=== PATIENT | male | born 1940 | race Caucasian/White ===

== ENCOUNTER 2020-05-16 10:35 | Outpatient (CLI) | payer MEDICARE, OTHER, SELFPAY ==
--- NOTE | 2020-05-16 11:15 | RT.EKG_ITS ---
APPROVED REPORT Exam: Resting ECG Patient Location: O HR:62 bpm ECG Measurements Heart Rate 62 AXIS PA 186 P 24 QRSd 102 QRS -28 QT 408 T 59 QTc 428 Conclusion Sinus rhythm...normal P axis, V-rate 60- 99 Atrial premature beats
== END 2020-05-16 10:36 | disposition home or self-care (01) ==
LOC: RT 10:38
PROVIDERS: Visit Provider Legal Medicine
DX: D46.9 Myelodysplastic syndrome, unspecified (principal)
CPT/HCPCS: 93005; 93010

== ENCOUNTER 2021-06-25 04:10 | Outpatient (CLI) | payer MEDICARE, OTHER, SELFPAY ==
[2021-06-26 00:23] LABS: COVID-19 RT-PCR UVMMC Result Negative (Negative)
== END 2021-06-25 04:11 | disposition home or self-care (01) ==
LOC: LBO 04:10
PROVIDERS: Visit Provider Internal Medicine Hematology & Oncology
DX: Z20.822 Contact with and (suspected) exposure to COVID-19 (principal); D46.9 Myelodysplastic syndrome, unspecified
CPT/HCPCS: U0003; U0005

== ENCOUNTER 2021-06-27 01:39 | Outpatient (RCR) | payer MEDICARE, OTHER, SELFPAY | END 2021-07-20 23:59 | disposition home or self-care (01) | LOC: INF 01:39 | PROVIDERS: Visit Provider Nurse Practitioner Acute Care | DX: Z29.8 Encounter for other specified prophylactic measures (principal); D46.9 Myelodysplastic syndrome, unspecified; D84.821 Immunodeficiency due to drugs; Z79.899 Other long term (current) drug therapy | CPT/HCPCS: 96372; Q0221 ==

== ENCOUNTER 2022-01-17 01:25 | Outpatient (RCR) | payer MEDICARE, OTHER, SELFPAY ==
[2022-01-17] VITALS (10 sets, daily range): BP systolic 121–150; BP diastolic 62–84; PULSE 69–83; RESP 18; TEMP 36.4–36.8; O2SAT 98–100
[2022-01-17 08:41] LABS: Abs Immature Grans 0.03 10^3/uL (0.0-0.06); Absolute Basophil Count 0.06 10^3/uL (0.0-0.2); Absolute Eosinophil Count 0.14 10^3/uL (0.0-0.7); Absolute Lymphocyte Count 0.75 10^3/uL (1.2-3.4); Absolute Monocyte Count 0.68 10^3/uL (0.1-0.8); Absolute Neutrophil Count 2.93 10^3/uL (1.2-6.7); Basophils % 1.3; Eosinophils % 3.1; HCT 25.6 % (40.0-50.0); HGB 8.4 g/dL (13.5-17.5); Immature Grans % 0.7; Lymphocytes % 16.3; MCH 29.3 pg (27.0-33.0); MCHC 32.8 % (32.0-36.0); MCV 89 fL (80-95); MPV 10.6 fL (8.0-11.0); Monocytes % 14.8; Neutrophils % 63.8; RBC 2.87 10^6/uL (4.36-5.78); RDW 13.8 % (11.8-14.1); RDW-SD 44.9 fL; WBC 4.59 10^3/uL (4.4-10.8)
[2022-01-17 09:11] LABS: Diff Comment Diff Reviewed; Hypochromasia 2+; Platelet Count 293 10^3/uL (130-400)
[2022-01-17 09:13] LABS: Poikilocytes 2+
[2022-01-17] MEDS: Normal Saline Flush 10 ML SYR IVP (09:34)
[2022-01-17] MEDS: Heparin 500 UNITS/5 ML SYRINGE IV (09:39)
== END 2022-01-20 23:59 | disposition home or self-care (01) ==
LOC: INF 01:25
PROVIDERS: Nurse Practitioner Adult Health; PCP Legal Medicine; Visit Provider Nurse Practitioner Family
DX: D46.9 Myelodysplastic syndrome, unspecified (principal)
CPT/HCPCS: 36415; 36430; 86850; 86900; 86901; 86920; 96372; Q0221; 85025; P9016

== ENCOUNTER 2022-03-14 00:51 | Outpatient (RCR) | payer MEDICARE, OTHER, SELFPAY ==
[2022-03-03] VITALS (9 sets, daily range): BP systolic 128–151; BP diastolic 69–76; PULSE 61–75; RESP 16–18; TEMP 36.7–37; O2SAT 99–100
[2022-03-03 10:24] LABS: Abs Immature Grans 0.03 10^3/uL (0.0-0.06); Absolute Basophil Count 0.03 10^3/uL (0.0-0.2); Absolute Eosinophil Count 0.19 10^3/uL (0.0-0.7); Absolute Lymphocyte Count 0.74 10^3/uL (1.2-3.4); Absolute Monocyte Count 0.67 10^3/uL (0.1-0.8); Absolute Neutrophil Count 2.68 10^3/uL (1.2-6.7); Basophils % 0.7; Eosinophils % 4.4; HCT 24.2 % (40.0-50.0); HGB 7.9 g/dL (13.5-17.5); Immature Grans % 0.7; Lymphocytes % 17.1; MCH 29.8 pg (27.0-33.0); MCHC 32.6 % (32.0-36.0); MCV 91 fL (80-95); MPV 11.2 fL (8.0-11.0); Monocytes % 15.4; Neutrophils % 61.7; Platelet Count 236 10^3/uL (130-400); RBC 2.65 10^6/uL (4.36-5.78); RDW 14.6 % (11.8-14.1); RDW-SD 49.3 fL; WBC 4.34 10^3/uL (4.4-10.8)
[2022-03-03] MEDS: Heparin 500 UNITS/5 ML SYRINGE IV (14:30)
[2022-03-03] MEDS: Normal Saline Flush 10 ML SYR IVP (14:30)
[2022-03-14] VITALS (10 sets, daily range): BP systolic 116–156; BP diastolic 50–80; PULSE 78–89; RESP 16–18; TEMP 36.6–36.8; O2SAT 97–99
[2022-03-14 07:59] LABS: Abs Immature Grans 0.05 10^3/uL (0.0-0.06); Absolute Basophil Count 0.06 10^3/uL (0.0-0.2); Absolute Lymphocyte Count 0.85 10^3/uL (1.2-3.4); Absolute Monocyte Count 0.85 10^3/uL (0.1-0.8); Absolute Neutrophil Count 4.21 10^3/uL (1.2-6.7); Eosinophils % 3.2; HCT 24.2 % (40.0-50.0); HGB 7.8 g/dL (13.5-17.5); Immature Grans % 0.8; Lymphocytes % 13.7; MCH 29.5 pg (27.0-33.0); MCHC 32.2 % (32.0-36.0); MCV 92 fL (80-95); MPV 10.9 fL (8.0-11.0); Monocytes % 13.7; Neutrophils % 67.6; Platelet Count 280 10^3/uL (130-400); RBC 2.64 10^6/uL (4.36-5.78); RDW 15.2 % (11.8-14.1); RDW-SD 50.8 fL; WBC 6.22 10^3/uL (4.4-10.8)
[2022-03-14] MEDS: Normal Saline Flush 10 ML SYR IVP (09:10)
[2022-03-14] MEDS: Heparin 500 UNITS/5 ML SYRINGE IV (09:10)
== END 2022-03-22 23:59 | disposition home or self-care (01) ==
LOC: INF 00:51
PROVIDERS: PCP Legal Medicine; Visit Provider Nurse Practitioner Adult Health
DX: D46.9 Myelodysplastic syndrome, unspecified (principal)
CPT/HCPCS: 36430; 36591; 86850; 86900; 86901; 86920; 85025; P9016

== ENCOUNTER 2022-03-26 13:44 | Inpatient (IN) | payer MEDICARE, SELFPAY ==
[2022-03-26] VITALS (29 sets, daily range): BP systolic 110–149; BP diastolic 68–129; PULSE 95–160; RESP 13–30; TEMP 36.4–36.8; O2SAT 95–100
--- NOTE | 2022-03-26 13:45 | RT.EKG_ITS ---
APPROVED REPORT Exam: Resting ECG Reason for Exam: Afib/lightheadedness Patient Location: E HR:101 bpm ECG Measurements Heart Rate 101 AXIS VA 194 P 54 QRSd 94 QRS -32 QT 362 T 120 QTc 470 Conclusion Sinus tachycardia...rate> 99 Probable left atrial enlargement...P >50mS, <-0.10mV V1 Left ventricular hypertrophy...multiple LVH criteria Abnormal T, consider ischemia, lateral leads...T <-0.20mV, I aVL V5 V6 inversions new compared to prior 05/16/20
--- NOTE | 2022-03-26 14:15 | DI.CT_ITS ---
Exam(s) CT CHEST PE CTA EXAM: CT CHEST PE CTA CLINICAL HISTORY: leukemia, SOB, BATISTA, tachy. TECHNIQUE: Imaging Protocol: Axial CT angiography was performed with multi-slice acquisition and mu lti-planar reconstructions as well as axial, coronal and sagittal MIP reconstructions. CONTRAST MATERIAL: Intravenous: Omnipaque 350 Contrast volume:100 ml COMPARISON: No exams were available for comparison FINDINGS: Pulmonary Arteries: No evidence of filling defect to suggest pulmonary emboli. Tracheobronchial tree: Patent where visualized. Mediastinum and K[place]: No dominant adenopathy or fluid collection. Pulmonary parenchyma: No consolidation or dominant measurable mass. Mild atelectasis or scarring in t he medial lingula. Mild basilar atelectasis. Pleura: No pneumothorax. Small to moderate size bilateral pleural effusions, right greater than left . Heart: Dilated left atrium and left ventricle. Coronary artery calcifications. Aorta: Thoracic aorta non-dilated. No aneurysm. No dissection. Mild atherosclerotic changes. Upper abdomen: Cholelithiasis. Pancreas somewhat atrophic. Small amount of ascites seen at border of liver. Bones: Prominent degenerative changes. No compression fractures. Tubes, Catheters, and Lines: Port over right pectoral muscle IMPRESSION: No evidence of pulmonary embolism. Small small a moderate-sized bilateral pleural effusions. No raghu dence of pneumonia or pulmonary edema. Findings called to Dr. Juliocesar Burris of the emergency department. RADIATION DOSE DELIVERED: 376.01mGy.cm Total DLP DATA REPOSITORY: All CT scans at this facility are submitted to the National Radiology Data Registry (NRDR) Dose Index Registry (DIR) with the [employer] ([employer]). RADIATION OPTIMIZATION: All CT scans at this facility use at least one of these dose optimization te chniques: automated exposure control; mA and/or kV adjustment per patient size (includes targeted exa ms where dose is matched to clinical indication); or iterative reconstruction.
--- NOTE | 2022-03-26 14:31 | W.ED.GENAD ---
Discharge Plan Disposition Patient Disposition: Admit to [facility] Condition: Serious Discharge Details Chief Complaint: Dizzy/Sync Clinical Impression: Acute CHF (congestive heart failure), Ascites, Hyperbilirubinemia, Transaminitis, Elevated troponin Primary Care Provider: Ros Hussein ED Provider: Juliocesar Burris Home Meds and New Rx's Prescriptions: No Action acyclovir 400 mg tablet 400 mg PO BID zinc 10 mg Tablet 10 mg PO BID Medical Decision Making 1435 --82-year-old male with history of end-stage leukemia, receiving transfusions every 1 to 2 weeks, here with shortness of breath with dyspnea on exertion over the past 2 weeks. Patient is saturating well and in no respiratory distress. He does have fine rales bilaterally throughout on lung auscultation. He is tachycardic. I reviewed playground monitor and patient is in a sinus tachycardia. EKG was reviewed and interpreted by me: Sinus tachycardia 101 bpm, left axis, T wave inversions are noted 1, aVL, V6. I compared this to prior EKG from 05/17/2020 and T wave inversions were not present at that time. I will check troponin. Consider CHF and will check BNP. I am highly concerned for acute pulmonary embolism and will obtain CT of the chest. -- CT of the chest was interpreted by radiology: bilateral small to moderate pleural effusions, LA and LV dilated, no PE, small ascites. Labs reviewed and BNP is significantly elevated. Troponin also slightly elevated at 90. Mild transaminitis with total bilirubin of 1.5. Patient is anemic 10.4, this is improved from most recent prior. Will give Lasix 20 mg IV. I called and spoke with the hospitalist, discussed ED presentation and course, they will admit the patient for continued diuresis and monitoring. Lab Data Lab results reviewed: Yes I reviewed the patient's lab results. Labs: Laboratory Tests Range/Units 03/26/22 03/26/22 03/26/22 14:10 14:10 14:36 WBC (4.4-10.8) 10^3/uL 9.29 RBC (4.36-5.78) 10^6/uL 3.48 L Hgb (13.5-17.5) g/dL 10.4 L Hct (40.0-50.0) % 30.7 L MCV (80-95) fL 88 MCH (27.0-33.0) pg 29.9 MCHC (32.0-36.0) % 33.9 RDW (11.8-14.1) % 15.1 H Plt Count (130-400) 10^3/uL MPV (8.0-11.0) fL Immature Gran % 1.2 Neutrophils % 74.0 Lymphocytes % 8.7 Monocytes % 14.2 Eosinophils % 1.0 Basophils % 0.9 Nucleated RBC % (0.0-0.3) % 0.0 Absolute Neutrophils (1.2-6.7) 10^3/uL 6.88 H Absolute Lymphocytes (1.2-3.4) 10^3/uL 0.81 L Absolute Monocytes (0.1-0.8) 10^3/uL 1.32 H Absolute Eosinophils (0.0-0.7) 10^3/uL 0.09 Absolute Basophils (0.0-0.2) 10^3/uL 0.08 Sodium (136-145) mmol/L 142 Potassium (3.5-5.1) mmol/L 4.6 Chloride (98-107) mmol/L 108 H Carbon Dioxide (21.0-32.0) mmol/L 25.7 Anion Gap (3-11) mmol/L 8.3 BUN (7-18) mg/dL 28 H Creatinine (0.70-1.30) mg/dL 1.0 Est GFR (CKD-EPI 2020) (mL/min/1.73m2) 75.61 Glucose (74-106) mg/dL 156 H Calcium (8.5-10.1) mg/dL 8.8 Magnesium (1.8-2.4) mg/dL 1.8 Total Bilirubin (0.2-1.0) mg/dL 1.5 H AST (15-37) U/L 52 H ALT (16-63) U/L 161 H Alkaline Phosphatase (46-116) U/L 133 H Troponin I (<or=60) ng/L 99 H* NT-Pro-B Natriuret Pep (<300) pg/mL 83236 H Total Protein (6.4-8.2) g/dL 7.0 Albumin (3.4-5.0) g/dL 4.0 TSH (0.36-3.74) uIU/mL 4.20 H Free T4 (0.76-1.46) ng/dL 1.03 COVID-19 Source Nasal/Nares SARS-CoV-2 (PCR) (Negative) Negative HPI General Mode of arrival: ambulatory. Date/Time Provider Initiated Documentation: 03/26/22 14:13. Limitations to Documentation: no limitations. Information obtained by: patient. HPI Narrative: 82-year-old male with history of end-stage anemia, sent from [facility] by Dr. Ling, with concern for potential arrhythmia. Patient has chief complaint of shortness of breath. He notes he has been feeling short of breath for the past 2-week. Symptoms are moderate to severe and persistent. He notes with any exertion he feels worse. He has no associated chest pain or palpitations. No leg swelling or calf pain. Patient is not actively receiving chemotherapy but is receiving blood transfusions of 2 units every [address] Beach and concerned about the potential for atrial fibrillation. Related Data Home Medications Medication Instructions Recorded Confirmed acyclovir 400 mg tablet 400 mg PO BID 10/25/21 03/26/22 zinc 10 mg tablet 10 mg PO BID 03/26/22 03/26/22 Allergies Allergy/AdvReac Type Severity Reaction Status Date / Time No Known Allergies Allergy Verified 03/10/22 12:58 General Stated Complaint: Dizzy/Sync ALISTAIR: 3 Review of Systems All systems reviewed & are unremarkable except as noted in HPI and below Constitutional Constitutional: Denies fever(s) Cardiovascular Cardiovascular: Reports as per HPI, Denies chest pain and Reports dyspnea Respiratory Respiratory: Reports as per HPI and Reports dyspnea PFSH All Active Problems (Updated 03/26/22 @ 16:12 by Juliocesar Burris MD) Acute CHF (congestive heart failure) (Acute) Ascites (Acute) Hyperbilirubinemia (Acute) Transaminitis (Acute) Elevated troponin (Acute) Unintentional weight loss (Acute) Physician orders for life-sustaining treatment (POLST) form indicates patient wish for [id number] status (Acute) Palliative care patient (Acute) Fatigue (Acute) Myelodysplastic syndrome (Acute) Basal cell carcinoma (Acute) Actinic keratosis (Acute) Hypertension (Chronic) Medical History Squamous cell carcinoma in situ of skin Social History Smoking/Tobacco Use Status: Never Smoking risk assessment performed?: Yes Substance use type: does not use Do you feel safe at home: Yes Do you feel safe in your relationship?: Yes Exam Const General: cooperative and no acute distress HENMT Mouth: moist mucous membranes Eyes Conjunctivae: normal conjunctivae Sclera: normal sclerae EOM: EOM intact bilaterally Neck Neck: trachea midline and supple Resp Effort & Inspection: normal respiratory effort Auscultation: rales bilaterally (throughout, fine), no rhonchi and no wheezes Cardio Jugular venous pressure: no JVD Rate: bradycardic Rhythm: regular rhythm Heart Sounds: no gallops, no murmurs and no rubs GI Palpation: soft, not firm, no guarding, no masses, not rigid and nontender Skin General skin exam: no rashes or lesions noted Neuro General: patient alert, patient awake, patient oriented x3 and tone normal Cognition: normal cognition Speech: speech normal Extrem General: no calf tenderness and edema Laterality: bilateral (trace distal LEs) Psych Appearance: grossly normal Mental Status: mental status grossly normal Speech and Movement: speech and movement normal Course Vital Signs Vital signs: Vital Signs Pulse 105 H 03/26/22 13:47 Respiratory Rate 16 03/26/22 13:47 Blood Pressure 128/82 03/26/22 13:47 Pulse Oximetry 98 03/26/22 13:47 Temperature Source Skin 03/26/22 13:47 Pulse 105 H 03/26/22 13:47 Respiratory Rate 18 03/26/22 14:10 Respiratory Effort Non-Labored 03/26/22 14:10 Respiratory Depth Normal 03/26/22 14:10 Respiratory Pattern Normal 03/26/22 14:10 Blood Pressure 128/82 03/26/22 13:47 Blood Pressure Position Supine 03/26/22 13:47 Pulse Oximetry 98 03/26/22 13:47 Oxygen Delivery Method Room Air 03/26/22 13:47 Oxygen Flow Rate 0 03/26/22 13:47 Pain Level 0 03/26/22 13:47
[2022-03-26 14:41] LABS: Source Nasal/Nares
[2022-03-26 14:44] LABS: Abs Immature Grans 0.11 10^3/uL (0.0-0.06); Absolute Basophil Count 0.08 10^3/uL (0.0-0.2); Absolute Eosinophil Count 0.09 10^3/uL (0.0-0.7); Absolute Lymphocyte Count 0.81 10^3/uL (1.2-3.4); Absolute Monocyte Count 1.32 10^3/uL (0.1-0.8); Absolute Neutrophil Count 6.88 10^3/uL (1.2-6.7); Basophils % 0.9; HCT 30.7 % (40.0-50.0); HGB 10.4 g/dL (13.5-17.5); Immature Grans % 1.2; Lymphocytes % 8.7; MCH 29.9 pg (27.0-33.0); MCHC 33.9 % (32.0-36.0); MCV 88 fL (80-95); Monocytes % 14.2; RBC 3.48 10^6/uL (4.36-5.78); RDW 15.1 % (11.8-14.1); RDW-SD 48.2 fL; WBC 9.29 10^3/uL (4.4-10.8)
[2022-03-26 15:07] LABS: ALT 161 U/L (16-63); AST 52 U/L (15-37); Alkaline Phosphatase 133 U/L (46-116); Anion Gap 8.3 mmol/L (3-11); BUN 28 mg/dL (7-18); Bilirubin, Total 1.5 mg/dL (0.2-1.0); CO2 25.7 mmol/L (21.0-32.0); Calcium 8.8 mg/dL (8.5-10.1); Chloride 108 mmol/L (98-107); Estimated GFR 75.61 (mL/min/1.73m2); Glucose 156 mg/dL (74-106); Magnesium 1.8 mg/dL (1.8-2.4); NT-proBNP 12397 pg/mL (<300); Potassium 4.6 mmol/L (3.5-5.1); Sodium 142 mmol/L (136-145)
[2022-03-26 15:09] LABS: Troponin I 99 ng/L (<or=60)
[2022-03-26 15:21] LABS: COVID-19 PCR Negative (Negative)
[2022-03-26 15:29] LABS: FREE T4 1.03 ng/dL (0.76-1.46)
[2022-03-26] MEDS: Furosemide 20 MG/2 ML VIAL IVP (15:34)
[2022-03-26] MEDS: Omnipaque 350 MG/ML 100 ML BTL IJ (15:46)
[2022-03-26] MEDS: Normal Saline Flush 10 ML SYR IVP ×2 (15:48→20:34)
[2022-03-26] MEDS: Normal Saline - Diluent 50 ML VIAL IJ (15:49)
--- NOTE | 2022-03-26 16:13 | W.PM.HP.N ---
Date of service: 03/26/22 Time of Service: 16:13 Assessment and Plan Assessment and plan (1) Acute CHF (congestive heart failure): Status: Acute Assessment and plan: Admitted to hospitalist services for diuresis. Received 20 mg of IV Lasix in the emergency department we will monitor intake and output closely and daily weights. Echocardiogram pending for tomorrow. telemetry to monitor for tachy dysrhymia, ? afib (denies palpitations or fluttering) He has had no chest pain and his symptoms for 2 weeks. His troponin is slightly elevated at 99 will obtain 1 more troponin to see how it is trending. (denies any c/p now or at/around onset) consider cardiology consult (2) Myelodysplastic syndrome: Status: Acute Assessment and plan: End-stage, receives weekly blood transfusions, Is a DNR/DNI discussed with DR Rosen. History of Present Illness History of Present Illness Chief Complaint: shortness of breath Narrative: This is an 82-year-old gentleman followed by oncology who is end-stage myelodysplastic syndrome who receives 1 to 2 units of packed red blood cells weekly who was referred to the emergency department for 2-week history of increasing shortness of breath. In the emergency department he was noted to have bilateral lower extremity trace edema and rales at his bases, he denies issue with edema. He had no oxygen requirement. He did undergo a CT for PE protocol that was negative for pulmonary embolism. He was given 20 mg of IV Lasix in the emergency department and admission request to hospitalist services was made patient will be admitted to the medical surgical unit for further diuresis and evaluation. Review of Systems Constitutional Constitutional: Denies chills, Denies fever(s) and Reports weakness Eyes Eyes: Denies change in vision ENT Ears, Nose, Mouth, and Throat: Denies vertigo and Denies dizziness Cardiovascular Cardiovascular: Denies chest pain, Reports leg edema (Bilateral), Reports dyspnea and Reports dyspnea on exertion Respiratory Respiratory: Reports dyspnea and Reports dyspnea on exertion Gastrointestinal Gastrointestinal: Denies abdominal pain, Denies hematochezia and Denies diarrhea Musculoskeletal Musculoskeletal: Denies back pain Neurologic Neurologic: Denies vertigo, Denies dizziness and Reports weakness Hematologic/Lymphatic Hematologic/Lymphatic: Denies easy bleeding PFSH All Active Problems (Updated 03/26/22 @ 16:12 by Juliocesar Burris MD) Acute CHF (congestive heart failure) (Acute) Ascites (Acute) Hyperbilirubinemia (Acute) Transaminitis (Acute) Elevated troponin (Acute) Unintentional weight loss (Acute) Physician orders for life-sustaining treatment (POLST) form indicates patient wish for [id number] status (Acute) Palliative care patient (Acute) Fatigue (Acute) Myelodysplastic syndrome (Acute) Basal cell carcinoma (Acute) Actinic keratosis (Acute) Hypertension (Chronic) Medical History Squamous cell carcinoma in situ of skin Social History Smoking/Tobacco Use Status: Never Smoking risk assessment performed?: Yes Substance use type: does not use Do you feel safe at home: Yes Do you feel safe in your relationship?: Yes Meds Allergies and Home Medications Allergies Allergy/AdvReac Type Severity Reaction Status Date / Time No Known Allergies Allergy Verified 03/10/22 12:58 Home Medications Medication Instructions Recorded Confirmed Type acyclovir 400 mg tablet 400 mg PO BID 10/25/21 03/26/22 History zinc 10 mg tablet 10 mg PO BID 03/26/22 03/26/22 History Exam Const General: cooperative, comfortable and no acute distress Nutritional Appearance: average body habitus Orientation: alert, awake and oriented x3 HENMT Head: normal to inspection, normocephalic and atraumatic Mouth: oral mucosae normal Resp Effort & Inspection: normal respiratory effort Auscultation: clear to auscultation bilaterally, diminished lung sounds (bases) and no wheezes Cardio Rate: regular rate Rhythm: regular rhythm Heart Sounds: no murmurs GI Inspection: normal to inspection Palpation: soft and nontender Auscultation: normal bowel sounds Skin General skin exam: no rashes or lesions noted Neuro General: patient alert, patient awake, patient oriented x3 and no focal motor deficits Extrem General: normal to inspection and no pedal edema Results Labs Result diagrams: 03/26/22 14:10 03/26/22 14:10 Labs: Laboratory Results - last 24 hr 03/26/22 03/26/22 03/26/22 14:10 14:10 14:36 WBC 9.29 RBC 3.48 L Hgb 10.4 L Hct 30.7 L MCV 88 MCH 29.9 MCHC 33.9 RDW 15.1 H Plt Count MPV Immature Gran % 1.2 Neutrophils % 74.0 Lymphocytes % 8.7 Monocytes % 14.2 Eosinophils % 1.0 Basophils % 0.9 Nucleated RBC % 0.0 Absolute Neutrophils 6.88 H Absolute Lymphocytes 0.81 L Absolute Monocytes 1.32 H Absolute Eosinophils 0.09 Absolute Basophils 0.08 Sodium 142 Potassium 4.6 Chloride 108 H Carbon Dioxide 25.7 Anion Gap 8.3 BUN 28 H Creatinine 1.0 Est GFR (CKD-EPI 2020) 75.61 Glucose 156 H Calcium 8.8 Magnesium 1.8 Total Bilirubin 1.5 H AST 52 H ALT 161 H Alkaline Phosphatase 133 H Troponin I 99 H* NT-Pro-B Natriuret Pep 01947 H Total Protein 7.0 Albumin 4.0 TSH 4.20 H Free T4 1.03 COVID-19 Source Nasal/Nares SARS-CoV-2 (PCR) Negative Last Vital Signs Pulse 105 H 03/26/22 13:47 Resp 18 03/26/22 14:10 BP 128/82 03/26/22 13:47 Pulse Ox 98 03/26/22 13:47 Time Spent Time spent with Patient: <40 minutes Time was spent: preparing to see the patient(eg.review tests), obtaining and/or reviewing separately otained hiistory, ordering medications,tests, procedures and referring, communicating with other health acute care nurse practitioner
[2022-03-26 19:16] LABS: Troponin I 117 ng/L (<or=60)
[2022-03-26] MEDS: Acyclovir 400 MG TAB PO (20:34)
[2022-03-26 22:33] LABS: Platelet Count 252 10^3/uL (130-400)
[2022-03-26 22:58] LABS: Troponin I 113 ng/L (<or=60)
[2022-03-27] VITALS (7 sets, daily range): BP systolic 100–126; BP diastolic 59–76; PULSE 91–98; RESP 16; TEMP 36.3–36.5; O2SAT 98
[2022-03-27] MEDS: Metoprolol 12.5 MG TAB PO ×2 (00:20→08:34)
[2022-03-27] MEDS: Normal Saline Flush 10 ML SYR IVP ×2 (00:20→08:34)
[2022-03-27 05:52] LABS: HCT 28.9 % (40.0-50.0); HGB 9.6 g/dL (13.5-17.5); MCHC 33.2 % (32.0-36.0); MCV 87 fL (80-95); MPV 12.8 fL (8.0-11.0); Platelet Count 281 10^3/uL (130-400); RBC 3.31 10^6/uL (4.36-5.78); RDW-SD 47.7 fL; WBC 8.39 10^3/uL (4.4-10.8)
[2022-03-27 06:02] LABS: Anion Gap 11.2 mmol/L (3-11); BUN 33 mg/dL (7-18); CO2 24.8 mmol/L (21.0-32.0); CREATININE 1.2 mg/dL (0.70-1.30); Calcium 8.6 mg/dL (8.5-10.1); Chloride 105 mmol/L (98-107); Estimated GFR 60.75 (mL/min/1.73m2); Glucose 141 mg/dL (74-106); Potassium 4.5 mmol/L (3.5-5.1); Sodium 141 mmol/L (136-145)
--- NOTE | 2022-03-27 07:15 | RT.EKG_ITS ---
APPROVED REPORT Exam: Resting ECG Reason for Exam: chf Patient Location: I HR:93 bpm ECG Measurements Heart Rate 93 AXIS NH 179 P 64 QRSd 89 QRS -32 QT 364 T 119 QTc 453 Conclusion Sinus rhythm...normal P axis, V-rate 50- 99 Supraventricular bigeminy...bigeminy string>4 w/ SV complexes Probable left atrial enlargement...P >50mS, <-0.10mV V1 Left ventricular hypertrophy...multiple LVH criteria Abnormal T, consider ischemia, lateral leads...T <-0.20mV, I aVL V5 V6
[2022-03-27] MEDS: Acyclovir 400 MG TAB PO (08:34)
--- NOTE | 2022-03-27 11:05 | DSE_ITS ---
Date of service: 03/27/22 Time of Service: 11:05 DS: Diagnosis Discharge Diagnosis (1) Acute CHF (congestive heart failure): Status: Acute (2) Myelodysplastic syndrome: Status: Acute Discharge Plan Disposition Patient Disposition: Home Condition: Good Discharge Details Reason For Visit: Congestive Heart Failure Admit Date/Time: 03/26/22 16:09 Admit Provider: Moncho Rosen Attending Provider: Moncho Rosen Primary Care Provider: Ros Hussein Hospital Course Hospital Course: This is an 82-year-old gentleman followed by oncology who is end-stage myelodysplastic syndrome who receives 1 to 2 units of packed red blood cells weekly who was referred to the emergency department for 2-week history of increasing shortness of breath.? In the emergency department he was noted to have bilateral lower extremity trace edema and rales at his bases, he denied previous history of edema.? He had and continues to have no oxygen requirement.? He did undergo a CT for PE protocol that was negative for pulmonary embolism.? He was given 20 mg of IV Lasix in the emergency department and admission request to hospitalist services was made. Patient was admitted to the medical surgical unit for further diuresis and evaluation. He did well overnight. Cardiology was consulted. He stated he felt back to baseline and his vital signs were stable, no chest pain and no shortness of breath. He was discharged to home with furosemide 20mg every other day until he sees his PCP. He was started on Metoprolol while hospitalized for AFib; he did not have any episodes of AFib, he had normal sinus rhythm with occasional PVC's that were pretty rare. The Metoprolol was stopped. He should have his blood drawn next week to check his electrolytes, that order has been sent. His electrolytes here are normal, therefore he is not going home with any supplementation of potassium or magnesium. He was discharged to home, ambulatory, improved, stable with his . Discussed with Dr Rosen. ? Home Meds and New Rx's Prescriptions: New furosemide [Lasix] 20 mg tablet 20 mg PO Q OTHER DAY Qty: 14 0RF No Action acyclovir 400 mg tablet 400 mg PO BID zinc 10 mg Tablet 10 mg PO BID Discharge Instructions Instructions: Heart Failure (DC), DASH Eating Plan (DC) Additional Instructions: Take furosemide 20 mg every other day until you see your PCP. Have your blood drawn next Thursday to check your electrolytes. DASH diet. Stand Alone Forms: Nursing Discharge Form Referrals: Ros Hussein [Primary Care Provider] - 04/03/22 10:45 am (1-2 weeks) Activity:: Activity as Tolerated Equipment/Supplies:: No Equipment Needed Diet:: Low Sodium Discharge Orders Discharge Orders: Discharge Order (Routine); Ordered 03/27/22 Ordered By: Nataly Alberto Other Ambulatory Orders: Basic Metabolic Panel (Routine) Timeframe: [id number] Facility: [facility] - Location: Laboratory Ordered By: Nataly Alberto Discharge Data Discharge Date/Time-TO BE ENTERED AT DEPARTURE: 03/27/22 13:25 DS: Summary Time Spent with Patient providing and/or coordinating discharge services: Greater than 30 minutes Status at Discharge Functional status at discharge: independent ambulation Overall status at discharge: patient is back to baseline Mental Status: mental status grossly normal Speech and Movement: speech and movement normal Mood: congruent mood Affect: normal affect Exam Const General: cooperative, comfortable and no acute distress Nutritional Appearance: average body habitus Orientation: alert, awake and oriented x3 HENMT Head: normal to inspection, normocephalic and atraumatic Mouth: oral mucosae normal Resp Effort & Inspection: normal respiratory effort Auscultation: clear to auscultation bilaterally and no wheezes Cardio Rate: regular rate Rhythm: regular rhythm Heart Sounds: no murmurs GI Inspection: normal to inspection Palpation: soft and nontender Auscultation: normal bowel sounds Skin General skin exam: no rashes or lesions noted Neuro General: patient alert, patient awake, patient oriented x3 and no focal motor deficits Extrem General: normal to inspection and no pedal edema Psych Mental Status: mental status grossly normal Speech and Movement: speech and movement normal Mood: congruent mood Affect: normal affect DS: Data Vitals/I&O Vitals and I&O: Vital Signs Temperature 36.5 C 03/27/22 06:41 Temperature Source Tympanic 03/27/22 06:41 Pulse 98 H 03/27/22 07:15 Pulse Rhythm Regular 03/27/22 09:00 Pulse 103 H 03/26/22 16:10 Respiratory Rate 16 03/27/22 06:41 Respiratory Effort 03/27/22 09:00 Respiratory Depth Normal 03/27/22 09:00 Respiratory Pattern Normal 03/27/22 09:00 Blood Pressure 126/76 03/27/22 06:41 Blood Pressure Mean 87 03/26/22 16:01 Blood Pressure Position Supine 03/26/22 13:47 Pulse Oximetry 98 03/27/22 06:41 Oxygen Delivery Method Room Air 03/27/22 06:41 Oxygen Flow Rate 0 03/27/22 06:41 Pain Level 0 03/26/22 22:47 Intake & Output 03/26/22 03/26/22 03/27/22 11:59 23:59 11:59 Intake Total 20 / 20 240 / 240 Output Total 250 / 250 300 / 300 Balance -230 / -230 -60 / -60 Weight 86.636 kg 83.4 kg Intake: IV 20 / 20 Oral 240 / 240 Output: Urine 250 / 250 300 / 300 Other: Urine Color Light Sandy Yellow Urine Appearance Clear Clear Urine Odor Normal Normal Comment pt had lasix in ED prior to arrival to [facility] unit Voiding Methods Toilet Bedside Commode Data Completed and Pending Labs on day of discharge: Labs from last 24 hours 03/27/22 03/27/22 03/26/22 05:40 05:40 22:19 WBC 8.39 RBC 3.31 L Hgb 9.6 L Hct 28.9 L MCV 87 MCH 29.0 MCHC 33.2 RDW 15.0 H Plt Count 281 252 MPV 12.8 H Immature Gran % Neutrophils % Lymphocytes % Monocytes % Eosinophils % Basophils % Nucleated RBC % Absolute Neutrophils Absolute Lymphocytes Absolute Monocytes Absolute Eosinophils Absolute Basophils Sodium 141 Potassium 4.5 Chloride 105 Carbon Dioxide 24.8 Anion Gap 11.2 H BUN 33 H Creatinine 1.2 Est GFR (CKD-EPI 2020) 60.75 Glucose 141 H Calcium 8.6 Magnesium Total Bilirubin AST ALT Alkaline Phosphatase Troponin I NT-Pro-B Natriuret Pep Total Protein Albumin TSH Free T4 COVID-19 Source SARS-CoV-2 (PCR) 03/26/22 03/26/22 03/26/22 22:19 18:40 14:36 WBC RBC Hgb Hct MCV MCH MCHC RDW Plt Count MPV Immature Gran % Neutrophils % Lymphocytes % Monocytes % Eosinophils % Basophils % Nucleated RBC % Absolute Neutrophils Absolute Lymphocytes Absolute Monocytes Absolute Eosinophils Absolute Basophils Sodium Potassium Chloride Carbon Dioxide Anion Gap BUN Creatinine Est GFR (CKD-EPI 2020) Glucose Calcium Magnesium Total Bilirubin AST ALT Alkaline Phosphatase Troponin I 113 H* 117 H* NT-Pro-B Natriuret Pep Total Protein Albumin TSH Free T4 COVID-19 Source Nasal/Nares SARS-CoV-2 (PCR) Negative 03/26/22 03/26/22 14:10 14:10 WBC 9.29 RBC 3.48 L Hgb 10.4 L Hct 30.7 L MCV 88 MCH 29.9 MCHC 33.9 RDW 15.1 H Plt Count MPV Immature Gran % 1.2 Neutrophils % 74.0 Lymphocytes % 8.7 Monocytes % 14.2 Eosinophils % 1.0 Basophils % 0.9 Nucleated RBC % 0.0 Absolute Neutrophils 6.88 H Absolute Lymphocytes 0.81 L Absolute Monocytes 1.32 H Absolute Eosinophils 0.09 Absolute Basophils 0.08 Sodium 142 Potassium 4.6 Chloride 108 H Carbon Dioxide 25.7 Anion Gap 8.3 BUN 28 H Creatinine 1.0 Est GFR (CKD-EPI 2020) 75.61 Glucose 156 H Calcium 8.8 Magnesium 1.8 Total Bilirubin 1.5 H AST 52 H ALT 161 H Alkaline Phosphatase 133 H Troponin I 99 H* NT-Pro-B Natriuret Pep 08404 H Total Protein 7.0 Albumin 4.0 TSH 4.20 H Free T4 1.03 COVID-19 Source SARS-CoV-2 (PCR) PFSH All Active Problems (Updated 03/26/22 @ 16:12 by Juliocesar Burris MD) Acute CHF (congestive heart failure) (Acute) Ascites (Acute) Hyperbilirubinemia (Acute) Transaminitis (Acute) Elevated troponin (Acute) Unintentional weight loss (Acute) Physician orders for life-sustaining treatment (POLST) form indicates patient wish for [id number] status (Acute) Palliative care patient (Acute) Fatigue (Acute) Myelodysplastic syndrome (Acute) Basal cell carcinoma (Acute) Actinic keratosis (Acute) Hypertension (Chronic) Medical History Squamous cell carcinoma in situ of skin Social History Smoking/Tobacco Use Status: Never Smoking risk assessment performed?: Yes Substance use type: does not use Do you feel safe at home: Yes Do you feel safe in your relationship?: Yes Time Spent with Patient Time Spent with Patient: <45 minutes Time was spent: preparing to see the patient(eg.review tests), obtaining and/or reviewing separately otained hiistory, ordering medications,tests, procedures, referring, communicating with other health child care centre manager, counseling the patient and care coordination
== END 2022-03-27 13:25 | disposition home or self-care (01) | DRG 292 ==
LOC: ER 16:15 → MS 17:15
PROVIDERS: Family Medicine; Nurse Practitioner Acute Care; Admitting Provider Family Medicine; Emergency Provider Student in an Organized Health Care Education/Training Program; PCP Legal Medicine; Visit Provider Family Medicine
DX: I11.0 Hypertensive heart disease with heart failure (principal); R18.8 Other ascites; I50.9 Heart failure, unspecified; D46.9 Myelodysplastic syndrome, unspecified; Z66 Do not resuscitate; R74.01 Elevation of levels of liver transaminase levels; R53.83 Other fatigue; I49.3 Ventricular premature depolarization; E80.6 Other disorders of bilirubin metabolism
CPT/HCPCS: 36415; 71275; 80048; 80053; 85027; 87635; 93005; 96374; 99285; 83735; 83880; 84439; 84443; 84484; 85025; 85049; 93010; 99222; 99239; J1941; J3490